=== PATIENT | male | born 1985 | race Caucasian/White ===

== ENCOUNTER 2017-06-26 16:36 | Emergency (ER) | payer SELFPAY ==
[~2017-06-26] VITALS: Ht 167.6 cm; Wt 59.0 kg
[2017-06-26 16:56] VITALS: BP 121/75; PULSE 78; RESP 16; TEMP 97.9; O2SAT 98
[2017-06-26 17:39] LABS: BLOOD, URINE LARGE (NEG); GLUCOSE,URINE NEG (NEG); KETONE, URINE NEG (NEG); NITRITE,URINE NEG (NEG)
[2017-06-26 17:44] LABS: URINE COLOR YELLOW (YELLW/STRAW)
[2017-06-26 17:45] LABS: COMMENT (UR) CULT NOT INDICATED; CULTURE IF INDICATED CULT NOT INDICATED; MUCUS URINE FEW /lpf (OCC); SQUAMOUS EPITHELIAL CELL URINE 0-5 /hpf (0-5)
--- NOTE | 2017-06-26 17:55 | PD ---
HPI Chief Complaint: Abdominal Pain Time Seen by Provider: 17:36 Travel History International Travel<30 days: No Contact w/Intl Traveler<30days: No Traveled to known affect area: No History of Present Illness HPI Patient is a 31-year-old male presents emergency department for evaluation of right lower quadrant abdominal pain and hematuria on and off for the past 2 weeks. Patient states the pain is sometimes severe and was severe about a half an hour ago prior to presentation but states pain is only 4 out of 10 at this time. Patient locates the pain to the right lower quadrant without radiation. States pain is coming and going severe at times. Associated with hematuria. He states that in the past he was diagnosed with kidney stone pain but that pain was more to the side then this pain is. PFSH Past Medical History Medical History: Denies Significant Hx Influenza Vaccination: No Past Surgical History Surgical History: No Previous Surgery Social History Alcohol Use: No Tobacco Use: Yes (1/2 PPD) Substance Use: Yes (MARIJUANA DAILY) Allergies-Medications (Allergen,Severity, Reaction): Coded Allergies: Penicillins (Verified Allergy, Unknown, 06/26/17) amoxicillin (Verified Allergy, Unknown, 06/26/17) Reported Meds & Prescriptions Reported Meds & Active Scripts Active Ibuprofen 600 Mg Tab 600 Mg PO Q8H PRN Review of Systems Except as stated in HPI: all other systems reviewed are Neg Physical Exam Narrative GENERAL: [Well-developed well-nourished, no obvious distress. Multiple tattoos and piercings. Quite pleasant gentleman. SKIN: Focused skin assessment warm/dry. HEAD: Atraumatic. Normocephalic. EYES: Pupils equal and round. No scleral icterus. No injection or drainage. ENT: No nasal bleeding or discharge. Mucous membranes pink and moist. NECK: Trachea midline. No JVD. CARDIOVASCULAR: Regular rate and rhythm. No murmur appreciated. RESPIRATORY: No accessory muscle use. Clear to auscultation. Breath sounds equal bilaterally. GASTROINTESTINAL: Abdomen soft, non-tender, nondistended. Hepatic and splenic margins not palpable. No tenderness at McBurney's point, Del Valle sign negative, no psoas or obturator sign. No CVA tenderness. MUSCULOSKELETAL: No obvious deformities. No clubbing. No cyanosis. No edema. NEUROLOGICAL: Awake and alert. No obvious cranial nerve deficits. Motor grossly within normal limits. Normal speech. PSYCHIATRIC: Appropriate mood and affect; insight and judgment normal. Data Data Last Documented VS Vital Signs Date Time Temp Pulse Resp B/P (MAP) Pulse Ox O2 Delivery O2 Flow Rate FiO2 06/26/17 19:41 06/26/17 19:05 20 06/26/17 19:05 68 97 06/26/17 18:46 Room Air 06/26/17 16:56 97.9 Orders Orders Urinalysis - C+S If Indicated (06/26/17 17:29) Basic Metabolic Panel (Bmp) (06/26/17 17:52) Complete Blood Count With Diff (06/26/17 17:52) Ct Abd/Pel W/O Iv Contrast (06/26/17 17:52) Iv Access Insert/Monitor (06/26/17 17:52) Ecg Monitoring (06/26/17 17:52) Oximetry (06/26/17 17:52) Sodium Chloride 0.9% Flush (Ns Flush) (06/26/17 18:00) Ketorolac Inj (Toradol Inj) (06/26/17 18:00) Ed Discharge Order (06/26/17 19:29) Labs Laboratory Tests Test 06/26/17 17:30 06/26/17 18:00 Urine Color YELLOW Urine Turbidity CLEAR Urine pH 6.0 Urine Specific Dalton 1.020 Urine Protein NEG mg/dL Urine Glucose (UA) NEG mg/dL Urine Ketones NEG mg/dL Urine Occult Blood LARGE Urine Nitrite NEG Urine Bilirubin NEG Urine Leukocyte Esterase NEG Urine RBC 20-24 /hpf Urine WBC 3-5 /hpf Urine Squamous Epithelial Cells 0-5 /hpf Urine Mucus FEW /lpf Microscopic Urinalysis Comment CULT NOT INDICATED White Blood Count 11.6 TH/MM3 Red Blood Count 5.30 MIL/MM3 Hemoglobin 16.3 GM/DL Hematocrit 49.8 % Mean Corpuscular Volume 93.9 FL Mean Corpuscular Hemoglobin 30.6 PG Mean Corpuscular Hemoglobin Concent 32.7 % Red Cell Distribution Width 14.6 % Platelet Count 333 TH/MM3 Mean Platelet Volume 8.3 FL Neutrophils (%) (Auto) 65.5 % Lymphocytes (%) (Auto) 25.0 % Monocytes (%) (Auto) 7.7 % Eosinophils (%) (Auto) 1.2 % Basophils (%) (Auto) 0.6 % Neutrophils # (Auto) 7.6 TH/MM3 Lymphocytes # (Auto) 2.9 TH/MM3 Monocytes # (Auto) 0.9 TH/MM3 Eosinophils # (Auto) 0.1 TH/MM3 Basophils # (Auto) 0.1 TH/MM3 CBC Comment DIFF FINAL Differential Comment Blood Urea Nitrogen 9 MG/DL Creatinine 1.00 MG/DL Random Glucose 80 MG/DL Calcium Level 9.3 MG/DL Sodium Level 138 MEQ/L Potassium Level 3.6 MEQ/L Chloride Level 101 MEQ/L Carbon Dioxide Level 29.7 MEQ/L Anion Gap 7 MEQ/L Estimat Glomerular Filtration Rate 87 ML/MIN MDM Medical Decision Making Medical Screen Exam Complete: Yes Emergency Medical Condition: Yes Differential Diagnosis Abdominal wall pain, appendicitis seems highly unlikely, kidney stone. Narrative Course patient with hematuria and right lower quadrant abdominal pain high consideration given to kidney stone. Abdominal exam is fairly benign. CAT scan does show multiple nonobstructing small 2 mm stones. Quite possible the patient has recently passed a stone is feeling some spasm from the ureter. Discussed that he needs to follow-up with his primary care physician or the [facility] or the workup consider follow-up with urologist as well. No definitive cause of his pain is isolated but there is no indication further workup in emerged Department she is comfortable and has benign abdominal exam. He stable for discharge. Diagnosis Primary Impression: Right lower quadrant pain Additional Impression: Hematuria Referrals: Anjel Quezada MD [facility] Med/Other Pt SpecificInfo: Prescription(s) given Scripts Ibuprofen (Ibuprofen) 600 Mg Tab 600 MG PO Q8H Y for PAIN, #30 TAB 0 Refills Prov: Tristen Sanchez MD 06/26/17 Disposition: 01 DISCHARGE HOME Condition: Stable Tristen Sanchez MD Jun 26, 2017 17:55
[2017-06-26] MEDS ORDERED: KETOROLAC TROMETHAMINE 30 MG/ML (IVP) VIAL IVP ONE (18:00)
[2017-06-26] MEDS ORDERED: SODIUM CHLORIDE 0.9% FLUSH 10 ML FLUSH IV FLUSH PRN (18:00)
[2017-06-26 18:12] LABS: AUTOMATED NEUTROPHIL # 7.6 TH/MM3 (1.8-7.7); BASOPHIL # 0.1 TH/MM3 (0-0.2); BASOPHIL % 0.6 % (0.0-2.0); EOSINOPHIL # 0.1 TH/MM3 (0-0.4); EOSINOPHIL % 1.2 % (0.0-4.0); HEMATOCRIT 49.8 % (39.0-51.0); HEMO FLAGS DIFF FINAL; LYMPHOCYTE # 2.9 TH/MM3 (1.0-4.8); MEAN CELL VOLUME 93.9 FL (80.0-100.0); MEAN CORPUSCULAR HEMOGLOBIN 30.6 PG (27.0-34.0); MEAN CORPUSCULAR HGB CONC 32.7 % (32.0-36.0); MONO % 7.7 % (0.0-8.0); NEUT % 65.5 % (16.0-70.0); PLATELET COUNT 333 TH/MM3 (150-450); RED CELL DISTRIBUTION WIDTH 14.6 % (11.6-17.2); WHITE BLOOD COUNT 11.6 TH/MM3 (4.0-11.0)
[2017-06-26 18:21] LABS: POTASSIUM 3.6 MEQ/L (3.5-5.1)
[2017-06-26 18:24] LABS: BICARBONATE 29.7 MEQ/L (21.0-32.0)
[2017-06-26 18:43] VITALS: RESP 16; O2SAT 98
[2017-06-26 18:46] VITALS: BP 132/85; PULSE 67; RESP 16; O2SAT 97
--- NOTE | 2017-06-26 18:58 | RADRPT ---
EXAM DATE/TIME: 06/26/2017 18:27 [facility] COMPARISON: No previous studies available for comparison. INDICATIONS : Right flank pain with hematuria. ORAL CONTRAST: No oral contrast ingested. RADIATION DOSE: 6.27 CTDIvol (mGy) MEDICAL HISTORY : None SURGICAL HISTORY : None. ENCOUNTER: Initial ACUITY: 3 weeks PAIN SCALE: 5/10 LOCATION: Right flank TECHNIQUE: Volumetric scanning of the abdomen and pelvis was performed. Using automated exposure control and adjustment of the mA and/or kV according to patient size, radiation dose was kept as low as reasonably achievable to obtain optimal diagnostic quality images. DICOM format image data is av ailable electronically for review and comparison. FINDINGS: LOWER LUNGS: The visualized lower lungs are clear. LIVER: Homogeneous density without lesion. There is no dilation of the biliary tree. No calcifi ed gallstones. Gallbladder sutures luminal structure without wall thickening SPLEEN: Normal size without lesion. PANCREAS: Within normal limits. KIDNEYS: Normal in size and shape. There is no mass or hydronephrosis. There are bilateral renal calculi at least 3 punctate in the left kidney mid upper and lower pole and at least 5 or 6 in the r ight kidney all calyceal punctate measuring 2-3 mm in size extending from the upper pole to the lower pole. ADRENAL GLANDS: Within normal limits. VASCULAR: There is no aortic aneurysm. BOWEL/MESENTERY: The stomach, small bowel, and colon demonstrate no acute abnormality. There is no free intraperitoneal air or fluid. ABDOMINAL WALL: Within normal limits. RETROPERITONEUM: There is no lymphadenopathy. BLADDER: No wall thickening or mass. REPRODUCTIVE: Within normal limits. INGUINAL: There is no lymphadenopathy or hernia. MUSCULOSKELETAL: Within normal limits for patient age. CONCLUSION: Multiple bilateral small 2-3 mm calyceal nonobstructing stones. No evidence of hydron ephrosis or ureteral calculi. David Allison MD on June 26, 2017 at 18:53 Board Certified Radiologist. This report was verified electronically.
[2017-06-26 19:05] VITALS: BP 124/80; PULSE 68; RESP 20; O2SAT 97
[2017-06-26] MEDS ORDERED: IBUP-232 PO (19:30)
== END 2017-06-26 19:44 | disposition home or self-care (01) ==
LOC: PHED 16:36
DX: R10.31 Right lower quadrant pain (principal); R31.9 Hematuria, unspecified; F17.200 Nicotine dependence, unspecified, uncomplicated
CPT/HCPCS: 74176; 80048; 81001; 85025; 96374; 99285; J1885